=== PATIENT | male | born 2000 | race Caucasian/White ===

== ENCOUNTER 2024-08-03 20:49 | Observation (INO) ==
[2024-08-03] MEDS: GLUCAGON,HUMAN RECOMBINANT 1 MG VIAL IV ONE (21:53)
[2024-08-03] MEDS: PANTOPRAZOLE 40 MG VIAL IV ONE (21:53)
[2024-08-03] MEDS ORDERED: DIAZEPAM 10 MG/2 ML SYRINGE IV PRN (22:00)
[2024-08-03] MEDS: METOCLOPRAMIDE 10 MG/2 ML VIAL IV ONE (22:10)
[2024-08-03] MEDS: DIAZEPAM 10 MG/2 ML SYRINGE IV ONE (22:10)
[2024-08-03] MEDS: 0.9 % SODIUM CHLORIDE 1,000 ML IV SCH (22:26)
[2024-08-03] MEDS: GLUCAGON,HUMAN RECOMBINANT 1 MG VIAL IV SCH (22:26)
[2024-08-04] MEDS: METOCLOPRAMIDE 10 MG/2 ML VIAL IV SCH (00:04)
== END 2024-08-04 13:05 | disposition home or self-care (01) ==
LOC: MEDSUR 20:49 → ED 20:49 → MEDSUR 22:57
PROVIDERS: ADMIT Family Medicine Adult Medicine; ATTEND Family Medicine Adult Medicine